=== PATIENT | male | born 1950 | race Caucasian/White ===

== ENCOUNTER 2021-07-31 11:14 | Day surgery (SDC) | payer MEDICARE, BC ==
[2021-07-31] VITALS (8 sets, daily range): BP systolic 105–125; BP diastolic 67–85
[~2021-07-31] VITALS: Ht 182.9 cm; Wt 90.1 kg
[2021-07-31] MEDS ORDERED: VALS160T30 PO (11:48)
[2021-07-31] MEDS ORDERED: LEVO150T PO (11:48)
[2021-07-31] MEDS ORDERED: CELE-85 PO (11:48)
[2021-07-31] MEDS ORDERED: ATOR20TA66 PO (11:48)
[2021-07-31] MEDS ORDERED: SITA1TAB6 PO (11:48)
[2021-07-31] MEDS ORDERED: TADA5TAB13 PO (11:48)
[2021-07-31] MEDS ORDERED: LORazepam 0.5 MG tablet PO PRN (11:50)
[2021-07-31] MEDS ORDERED: normal saline 1,000 ML IV SCH (11:50)
[2021-07-31] MEDS ORDERED: diphenhydrAMINE 25mg capsule PO PRN (11:50)
[2021-07-31] MEDS ORDERED: IOHEXOL 350 MG/ML INFUS..BTL 125ML IV ONE (12:05)
[2021-07-31] MEDS ORDERED: heparin 1,000unit/ml 10ml vial 10 ML ONE (12:05)
[2021-07-31] MEDS ORDERED: LIDOcaine 1% 30ml preserv. free vial ONE (12:05)
[2021-07-31] MEDS ORDERED: fentaNYL/PF 50MCG/1 ML 2ML syringe ONE (12:05)
[2021-07-31] MEDS ORDERED: nitroGLYCERIN-Tridil 50MG/D5W 250 ML IV ONE (12:05)
[2021-07-31] MEDS ORDERED: verapamil 2.5 mg/ml inj IV ONE (12:05)
[2021-07-31] MEDS ORDERED: midazolam 1 mg/ML 2ml injection ONE (12:05)
[2021-07-31] MEDS ORDERED: heparin 1,000 UNITS/NS 500ml 500 ML ONE ×2 (12:11→13:51)
[2021-07-31 12:49] LABS: APTT 26 SECONDS (22-32)
--- NOTE | 2021-07-31 15:06 | NUR ---
Spoke with Chandan, disaster recovery manager, regarding pre-checked orders. Clarified pre-checked orders and DC'd pre-ordered labs.
[2021-07-31] MEDS ORDERED: HYDROcodone/acetaminophen 10/325mg tab PO PRN (15:15)
[2021-07-31] MEDS ORDERED: HYDROcodone/acetaminophen 5mg/325mg tablet PO PRN (15:15)
[2021-08-01 09:21] LABS: ISTAT Hct MIX 41 %PCV (42-52); ISTAT O2 SATURATION MIX VENOUS 67 % (60-80); ISTAT SOURCE BLNK
[2021-08-01 09:21] LABS: ISTAT HGB ART 13.3 g/dl (14.0-18.0); ISTAT Hct ART 39 %PCV (42-52); ISTAT O2 SATURATION ARTERIAL 94 % (95-98); ISTAT SOURCE BLNK
== END 2021-07-31 16:40 | disposition home or self-care (01) ==
LOC: SSTAY O 11:14
PROVIDERS: ATTEND Internal Medicine Interventional Cardiology
DX: I35.2 Nonrheumatic aortic (valve) stenosis with insufficiency (principal); E11.9 Type 2 diabetes mellitus without complications; I10 Essential (primary) hypertension; E03.9 Hypothyroidism, unspecified; Z79.01 Long term (current) use of anticoagulants; Z79.899 Other long term (current) drug therapy; Z98.890 Other specified postprocedural states; Z82.49 Family history of ischemic heart disease and other diseases of the circulatory system
CPT/HCPCS: 36415; 82803; 82948; 85014; 85610; 85730; 93005; 93456; 99152; 99153; C1751; C1769; C1894; J1644; J2250; J3010; J3490; J7030; Q9967; 93460; A4620; A5120; A6258; A6402

== ENCOUNTER 2021-08-08 11:23 | Outpatient (CLI) | payer MEDICARE, BC ==
[~2021-08-08 11:23] MED LIST: ATOR20TA66 PO; CELE-85 PO; LEVO150T PO; SITA1TAB6 PO; TADA5TAB13 PO; VALS160T30 PO
[2021-08-08 12:11] LABS: BASOPHILS % (AUTO) 0.6 % (0-1); EOSINOPHILS # (AUTO) 0.1 X10'3 (0-0.9); HEMATOCRIT 41.5 % (42.0-52.0); HEMOGLOBIN 14.1 g/dl (14.0-17.9); LYMPHOCYTES # (AUTO) 0.9 X10'3 (1.1-4.8); LYMPHOCYTES % (AUTO) 14.9 % (21-51); MEAN CORPUSCULAR HEMOGLOBIN 33.4 PG (27.0-31.0); MEAN CORPUSCULAR HGB CONC 33.9 g/dL (33.0-36.5); MEAN CORPUSCULAR VOLUME 98.5 FL (78-98); MEAN PLATELET VOLUME 7.9 FL (7.4-10.4); MONOCYTES # (AUTO) 0.7 X10'3 (0-0.9); MONOCYTES % (AUTO) 11.9 % (2-12); NEUTROPHILS # (AUTO) 4.3 X10'3 (1.8-7.7); NEUTROPHILS % (AUTO) 70.6 % (42-75); PLATELET COUNT 161 X10'3 (140-440); RED BLOOD COUNT 4.22 X10'6 (4.70-6.10); RED CELL DISTRIBUTION WIDTH 14.1 % (11.5-14.5); WHITE BLOOD COUNT 6.1 X10'3 (4.5-11.0)
[2021-08-08 12:33] LABS: ALANINE AMINOTRANSFERASE 33 U/L (12-78); ALBUMIN 3.7 G/DL (3.4-5.0); ALBUMIN/GLOBULIN RATIO 1.2 (1.1-1.5); ALKALINE PHOSPHATASE 47 IU/L (46-116); ANION GAP 11 (8-16); ASPARTATE AMINO TRANSFERASE 24 U/L (10-37); BILIRUBIN,TOTAL 0.5 MG/DL (0.1-1.0); BLOOD UREA NITROGEN 29 MG/DL (7-18); BUN/CREATININE RATIO 29.9 (5.4-32.0); CALCIUM 8.9 MG/DL (8.5-10.1); CHLORIDE 104 MMOL/L (99-107); CREATININE 0.97 MG/DL (0.60-1.10); GLUCOSE 128 MG/DL (70-104); POTASSIUM 3.8 MMOL/L (3.5-5.1); SODIUM 139 MMOL/L (135-145); TOTAL CARBON DIOXIDE 24.4 MMOL/L (24-32); TOTAL PROTEIN 6.7 G/DL (6.4-8.2); eGFR 76 ML/MIN
[2021-08-08] MEDS ORDERED: IODIXANOL 320 MG/ML INFUS..BTL 50ML IV ONE (12:50)
[2021-08-08 13:39] LABS: APTT 27 SECONDS (22-32)
== END 2021-08-08 23:59 | disposition home or self-care (01) ==
LOC: RAD 11:23
PROVIDERS: ATTEND Internal Medicine Cardiovascular Disease
DX: Z01.818 Encounter for other preprocedural examination (principal); Q25.46 Tortuous aortic arch; I70.0 Atherosclerosis of aorta; I77.1 Stricture of artery; N40.0 Benign prostatic hyperplasia without lower urinary tract symptoms; M51.36 Other intervertebral disc degeneration, lumbar region; I35.0 Nonrheumatic aortic (valve) stenosis; I65.29 Occlusion and stenosis of unspecified carotid artery; Z79.899 Other long term (current) drug therapy
CPT/HCPCS: 36415; 71046; 71275; 74174; 80053; 85025; 85610; 85730; 94010; 94727; 94729; J3490; Q9967